=== PATIENT | male | born 1995 | race Caucasian/White ===

== ENCOUNTER → 2016-11-15 | Outpatient (CLI) | payer OTHER ==
[~2016-11-15] MED LIST: AMPH1TAB58 PO; AMPH20TA2 PO
--- NOTE | 2016-11-15 16:38 | DIAGNOSTIC IMAGING REPORT ---
CHEST 2 VIEWS ROUTINE CLINICAL HISTORY: Cough. Community-acquired pneumonia. COMPARISON STUDY: No previous studies for comparison. FINDINGS: Lung volumes are normal. Lungs are clear. There is no pneumothorax or pleural effusion. Cardiac size is normal. Mediastinal contours are normal. There is no evidence of pulmonary edema. IMPRESSION: No acute cardiopulmonary findings. Electronically signed by: Philip Pfeiffer M.D. 11/15/2016 4:36 PM Dictated Date/Time: 11/15/2016 4:36 PM
== END | disposition home or self-care (01) ==
LOC: C.RAD1850 15:53
PROVIDERS: ATTEND Nurse Practitioner Family
DX: R05 Cough (principal); J18.9 Pneumonia, unspecified organism